=== PATIENT | male | born 1970 | race Caucasian/White ===

== ENCOUNTER 2018-08-05 20:58 | Emergency (ER) | payer SELFPAY ==
[2018-08-05 22:23] LABS: BASOPHILS % (AUTO) 0.6 % (0.0-5.0); EOSINOPHILS % (AUTO) 2.3 % (0.0-8.0); HEMATOCRIT 44.6 % (42-54); LYMPHOCYTES % (AUTO) 33.1 % (21.0-51.0); MEAN CORPUSCULAR HEMOGLOBIN 32.2 pg (27.0-33.0); MEAN CORPUSCULAR VOLUME 92.1 fL (79-99); NUCLEATED RED BLOOD CELLS 0.1 % (0.0-0.19); PLATELET COUNT (AUTO) 253 K/uL (130-400); RED BLOOD CELL COUNT(AUTO) 4.84 MIL/uL (4.50-6.20); RED CELL DISTRIBUTION WIDTH 12.7 % (11.0-15.5); WHITE BLOOD COUNT (AUTO) 7.5 K/uL (4.8-10.8)
[2018-08-05 22:27] LABS: CREATININE 1.2 mg/dL (0.5-1.5); POTASSIUM 3.6 mmol/L (3.5-5.1)
[2018-08-05 22:30] LABS: INR 0.99 (0.85-1.15); PARTIAL THROMBOPLASTIN TIME 28.5 SEC (26.3-35.5); PROTHROMBIN TIME 10.4 SEC (9.6-11.6)
[2018-08-05 22:38] LABS: ALBUMIN 3.7 g/dL (3.5-5.0); BILIRUBIN,TOTAL 0.5 mg/dL (0.2-1.0); TOTAL PROTEIN, SERUM 7.5 g/dL (6.0-8.3)
== END 2018-08-06 02:45 | disposition home or self-care (01) ==
LOC: EDH 20:58 → EEVIPCON 20:58 → EDH 08-06 02:45
DX: R07.89 Other chest pain (principal); I10 Essential (primary) hypertension
CPT/HCPCS: 36415; 71045; 80053; 82550; 83874; 84484; 85025; 85610; 85730; 93005

== ENCOUNTER 2023-04-07 17:56 | Emergency (ER) | payer OTHER ==
[~2023-04-07] VITALS: Ht 182.9 cm; Wt 122.5 kg
[2023-04-07 18:37] LABS: RAPID GROUP A STREP negative (NEGATIVE)
[2023-04-07 18:40] LABS: SARS-CoV-2, RNA, NAAT NEGATIVE SARS CoV-2 (NEGATIVE)
[2023-04-07 18:45] LABS: INFLUENZA TYPE A Negative For Type A (NEGATIVE); INFLUENZA TYPE B Negative For Type B (NEGATIVE)
[2023-04-07] MEDS ORDERED: KETOROLAC 30MG VIAL (30MG/ML) IVP ONE (20:30)
[2023-04-07] MEDS ORDERED: FAMOTIDINE 20MG VIAL IV ONE (20:30)
[2023-04-07] MEDS ORDERED: ALBUTEROL 0.083% 2.5 MG/3 ML INH IH ONE (20:30)
[2023-04-07] MEDS ORDERED: METOCLOPRAMIDE 10 MG/2 ML VIAL IVP ONE (20:30)
[2023-04-07] MEDS ORDERED: LACTATED RINGERS 1000ML 1,000 ML IV ONE (20:30)
[2023-04-07] MEDS ORDERED: GUAIFENESIN 600 MG TABLET.ER PO ONE (20:30)
[2023-04-07 20:38] VITALS: PULSE 92; RESP 18
[2023-04-07 21:03] LABS: BASOPHILS # (AUTO) 0.04 K/uL (0.00-0.20); BASOPHILS % (AUTO) 0.7 % (0.0-5.0); EOSINOPHILS # (AUTO) 0.27 K/uL (0.00-0.70); EOSINOPHILS % (AUTO) 4.8 % (0.0-8.0); HEMATOCRIT 38.7 % (42-54); IMMATURE GRANULOCYTE ABSOLUTE 0.02 K/uL (0-1); LYMPHOCYTES # (AUTO) 2.1 K/uL (1.0-4.8); LYMPHOCYTES % (AUTO) 37.9 % (21.0-51.0); MEAN CORPUSCULAR HEMOGLOBIN 31.1 pg (27.0-33.0); MEAN CORPUSCULAR HGB CONC 33.9 g/dL (32.0-36.0); MEAN CORPUSCULAR VOLUME 91.9 fL (79-99); MONOCYTES # (AUTO) 0.6 K/uL (0.1-1.0); MONOCYTES % (AUTO) 11.2 % (3.0-13.0); NEUTROPHILS # (AUTO) 2.6 K/uL (1.8-7.7); PLATELET COUNT (AUTO) 202 K/uL (130-400); RED BLOOD CELL COUNT(AUTO) 4.21 MIL/uL (4.50-6.20); RED CELL DISTRIBUTION WIDTH 12.7 % (11.0-15.5); WHITE BLOOD COUNT (AUTO) 5.7 K/uL (4.8-10.8)
[2023-04-07 21:09] LABS: POTASSIUM 4.4 mmol/L (3.5-5.1)
[2023-04-07 21:15] LABS: ALBUMIN 2.8 g/dL (3.5-5.0); BILIRUBIN,TOTAL 0.2 mg/dL (0.2-1.0); TOTAL PROTEIN, SERUM 6.2 g/dL (6.0-8.3)
[2023-04-07] MEDS ORDERED: AUD IH (22:18)
[2023-04-07] MEDS ORDERED: GUAI600T50 PO (22:18)
[2023-04-07] MEDS ORDERED: ALBUHFA IH (22:18)
[2023-04-07 23:14] VITALS: BP 118/90; PULSE 78; RESP 16; O2SAT 98
== END 2023-04-07 23:19 | disposition home or self-care (01) ==
LOC: EDH 17:56
DX: J20.9 Acute bronchitis, unspecified (principal); Z20.822 Contact with and (suspected) exposure to COVID-19; Z98.890 Other specified postprocedural states
CPT/HCPCS: 99285; 96374; 96361; 76705; 71045; 87635; 96375 ×2; 84484; 80053; 83690; 85025; 87880; 87804 ×2; 83605; 36415; 93005; 94640; C9803; J7120; J3490; J1885; J2765

== ENCOUNTER 2023-04-09 00:11 | Emergency (ER) | payer OTHER ==
[~2023-04-09] VITALS: Ht 182.9 cm; Wt 122.5 kg
[~2023-04-09 00:11] MED LIST: ALBUHFA IH; AUD IH; GUAI600T50 PO
[2023-04-09] MEDS ORDERED: CYCLOBENZAPRINE HCL 10 MG TABLET PO ONE (00:30)
[2023-04-09] MEDS ORDERED: IBUPROFEN 800 MG TAB PO ONE (00:30)
[2023-04-09 02:07] VITALS: BP 145/62; PULSE 78; RESP 14; O2SAT 97
[2023-04-09] MEDS ORDERED: CYCL-309 PO (02:11)
[2023-04-09] MEDS ORDERED: IBUP-1493 PO (02:11)
== END 2023-04-09 02:21 | disposition home or self-care (01) ==
LOC: EDH 00:11
DX: S30.1XXA Contusion of abdominal wall, initial encounter (principal); M79.10 Myalgia, unspecified site; Z79.899 Other long term (current) drug therapy; Z98.890 Other specified postprocedural states; X58.XXXA Exposure to other specified factors, initial encounter; Y93.89 Activity, other specified; Y92.89 Other specified places as the place of occurrence of the external cause; Y99.8 Other external cause status

== ENCOUNTER 2024-03-13 11:38 | Emergency (ER) | payer SELFPAY ==
[~2024-03-13] VITALS: Ht 182.9 cm; Wt 127.0 kg
[~2024-03-13 11:38] MED LIST changes: +CYCL-309 PO; +IBUP-1493 PO
[2024-03-13] MEDS ORDERED: NAPR-1023 PO (13:47)
--- NOTE | 2024-03-13 13:48 | ERN ---
General Chief Complaint: Knee Injury/Swelling Stated Complaint: RIGHT KNEE PAIN Time Seen by MD: 11:49 Source: patient History of Present Illness Initial Comments PATIENT IS A 53-YEAR-OLD MALE COMING IN TO BE EVALUATED FOR RIGHT KNEE PAIN. PATIENT STATES THAT HE WAS WALKING AND TWISTED HIS RIGHT KNEE. HE COMPLAINS OF TENDERNESS IN THE MEDIAL ASPECT OF THE KNEE. Allergies: Coded Allergies: No Known Allergies (Unverified Allergy, Unknown, 04/07/23) Home Meds Active Scripts Ibuprofen (Motrin/Advil) 800 Mg Tab, 800 MG PO TID, #30 TAB Prov:MUNDO JENNINGS MD 04/09/23 Cyclobenzaprine HCl (Cyclobenzaprine HCl) 10 Mg Tablet, 10 MG PO TIDP PRN for PAIN, #30 TAB Prov:MUNDO JENNINGS MD 04/09/23 Albuterol Sulfate (Ventolin Hfa/Proventil Hfa/Proair Hfa) 90 Mcg Puff, 2 PUFF IH Q4H for WHEEZING, #1 INHALER 2 Refills Prov:JESSICA PATRICIO Sr., MD 04/07/23 Albuterol Sulfate (Albuterol Sulfate) 2.5 Mg/0.5 Ml Vial.neb, 2.5 MG IH Q6H for wheezing/sob, #20 INH 2 Refills Prov:JESSICA PATRICIO Sr., MD 04/07/23 Guaifenesin (Mucinex) 600 Mg Tablet.er, 600 MG PO QIDP PRN for COUGH/COLD SYMPTOMS, #40 TAB 2 Refills Prov:JESSICA PATRICIO Sr., MD 04/07/23 Past Medical History Past Medical History: No Pertinent History Past Surgical History: Other Surgical History Other: ABSCESS TO RT JAW Family History Family History: Negative Social History Social History: Lives with family ROS Dictation CONSTITUTIONAL: NO CHILLS, NO FEVER, NO WEAKNESS, NO DIAPHORESIS, NO MALAISE. HEAD/FACE: NO SIGNS OF TRAUMA. EENT: NO EYE PAIN, NO BLURRED VISION, NO TEARING, NO DOUBLE VISION, NO EAR PAIN, NO EAR DISCHARGE, NO NOSE PAIN, NO NASAL CONGESTION, NO THROAT PAIN, NO THROAT SWELLING, NO MOUTH PAIN. RESPIRATORY: NO COUGH, NO ORTHOPNEA, NO SOB, NO STRIDOR, NO WHEEZING. CARDIOVASCULAR: NO CHEST PAIN, NO EDEMA, NO PALPITATIONS, NO SYNCOPE. GASTROINTESTINAL/ABDOMINAL: NO ABDOMINAL PAIN, NO CONSTIPATION, NO DIARRHEA, NO NAUSEA, NO VOMITING. GENITOURINARY: NO ABNORMAL DISCHARGE, NO DYSURIA, NO FREQUENT URINATION, NO HEMATURIA. NO COMPLAINTS OF PAIN IN THE GENITALS. MUSCULOSKELETAL: NO BACK PAIN, NO GOUT, NO JOINT PAIN, JOINT SWELLING, MUSCLE PAIN, MUSCLE STIFFNESS, NO NECK PAIN. INTEGUMENTARY: NO CHANGE IN COLOR, NO CHANGE IN HAIR/NAILS, NO DRYNESS, NO LESION, NO LUMPS, NO RASH. NEUROLOGICAL/PSYCH: NO ANXIETY, NOT DEPRESSED, NO EMOTIONAL PROBLEM, NO HEADACHE, NO NUMBNESS, NO PRE-EXISTING DEFICIT, NO HISTORY OF SEIZURES, NO TREMORS, NO WEAKNESS. HEMATOLOGIC/LYMPHATIC: NOT ANEMIC, NO HISTORY OF BLOOD CLOTS, NO APPARENT BLEEDING, NO BRUISING, GLANDS NOT SWOLLEN. ALL SYSTEMS NEGATIVE, EXCEPT NOTED. Physical Exam Physical Exam Dictation VITAL SIGNS: REVIEWED. GENERAL APPEARANCE: ALERT, ORIENTED X3, NO ACUTE DISTRESS, OBESE. HEAD AND FACE: NON-TRAUMATIC. EYES: PERRL, PINK CONJUNCTIVAS, EYELID NO TRAUMA, ANTERIOR CHAMBER CLEAR. EARS: PINNAS INTACT AND NO SIGNS OF TRAUMA OR ERYTHEMA. EAR CANALS CLEAR AND NO DISCHARGE. TMS NO ERYTHEMA. NOSE: NO DISCHARGE, NO BLEEDING. OROPHARYNX: MOUTH NORMAL, TEETH NO CARIES, TONGUE PINK. PHARYNX CLEAR, NO ERYTHEMA. TONSILS NO EXUDATES, NO ABSCESSES NOTED. MUCOUS MEMBRANE MOIST. NECK: SUPPLE, NON-TENDER, NO THYROMEGALY, NO MASSES, NO JVD, NO BRUITS. BREAST: DEFERRED. CHEST: NO TENDERNESS, NO CREPITUS, NO PARADOXICAL MOVEMENT, NO RETRACTIONS. LUNGS: CLEAR, WELL-VENTILATED, SYMMETRIC, NO RALES, NO WHEEZING, NO RHONCHI, NO STRIDOR, GOOD BREATH SOUNDS BILATERALLY. HEART: REGULAR RATE, REGULAR RHYTHM, NO MURMUR, NO GALLOPS. VASCULAR: NO PERIPHERAL EDEMA. ABDOMEN: SOFT, POSITIVE BOWEL SOUNDS, NONDISTENDED, NO GUARDING, NONTENDER, NO REBOUND, NO MASSES NO HEPATOMEGALY, NO SPLENOMEGALY, NO BRAUN'S SIGN, NO HERNIAS. RECTAL: DEFERRED. GENITAL: DEFERRED. NEUROLOGICAL: NORMAL SPEECH, GROSS MOTOR FUNCTION INTACT, GROSS SENSORY FUNCTION INTACT. MUSCULOSKELETAL: NECK NONTENDER, FULL RANGE OF MOTION, BACK NONTENDER, FULL RANGE OF MOTION. EXTREMITIES: NONTENDER, FULL RANGE OF MOTION. RIGHT DISCOMFORT ON PALPATION, NO DEFORMITY NOTED SKIN: COLOR PINK, DRY, NO TURGOR, NO RASH, NO LACERATIONS, NO ABRASIONS, NO CONTUSIONS. LYMPHATICS: DEFERRED. Results Laboratory and Microbiology Labs Reviewed?: Yes EKG/XRAY/US/CT/MRI X-RAY Comment X-RAY RIGHT KNEE-NAD MDM MDM: DIFFERENTIAL DIAGNOSIS: RIGHT KNEE STRAIN, RIGHT KNEE FRACTURE, PATELLAR FRACTURE PATIENT IS A 53-YEAR-OLD MALE COMING IN TO BE EVALUATED FOR RIGHT KNEE PAIN. PATIENT STATES THAT EARLIER HE WAS WALKING IN TWISTED HIS RIGHT KNEE IN HIS COMPLAINING OF MEDIAL TENDERNESS. ON X-RAY NO ACUTE FINDINGS. KNEE IMMOBILIZER WILL BE PLACED I ADVISED HER APPROPRIATE FOLLOW UP WITH PCP IN 1-2 DAYS FOR ED Course Orders Procedure Category Date Status Time Knee 3vws Rt RAD 03/13/24 Taken 12:05 Knee Immobilizer YUSEF 03/13/24 In Process 13:25 Ketorolac PHA 03/13/24 Complete Tromethamine 30mg/Ml 13:30 Current Medications Medications (Trade) Dose Ordered Sig/Tanja Route PRN Reason Start Time Stop Time Status Last Admin Dose Admin Ketorolac Tromethamine (toRADol) 30 mg ONCE ONCE IM 03/13/24 13:30 03/13/24 13:31 DC Vital Signs Date Time Temp Pulse Resp B/P (MAP) Pulse Ox O2 Delivery O2 Flow Rate FiO2 03/13/24 11:46 97.9 99 16 162/115 97 Room Air 0 DX & DISP Disposition: Discharge Departure Impression: Primary Impression: Knee strain Condition: Stable Scripts Naproxen (Naproxen) 500 Mg Tablet 1 TAB PO BID for pain for 7 Days, #14 TAB 0 Refills Prov: LISA MAIER MD 03/13/24 Additional Instructions: FOLLOW-UP WITH PRIMARY CARE PROVIDER IN 1 TO 2 DAYS. TAKE MEDICATIONS DIRECTED HERE IN THE EMERGENCY ROOM. OKAY TO CONTINUE HOME MEDICATIONS UNLESS OTHERWISE DISCUSSED DURING YOUR VISIT IN THE EMERGENCY ROOM TODAY. RETURN TO YOUR NEAREST EMERGENCY ROOM IF SYMPTOMS WORSEN OR IF THERE IS NO IMPROVEMENT. CALL 911 IF YOU NEED IMMEDIATE ASSISTANCE. TAKE TYLENOL [id number] N EEDED AND IF NO CONTRAINDICATIONS ARE PRESENT. INCREASE ORAL HYDRATION. A WOUND CULTURE OR URINE CULTURE WAS ORDERED HERE IN THE EMERGENCY ROOM DEPARTMENT PLEASE FOLLOW-UP WITH PRIMARY CARE PROVIDER AND ADVISE THEM TO GET REPEAT PORTS FROM OUR FACILITY. IF YOU HAD ANY ABIGAIL WRAP/SPLINTS THAT WERE APPLIED HERE, PLEASE DO NOT REMOVE THEM UNTIL YOU SEE YOUR PRIMARY CARE OR SPECIALTY. REFERRALS: Referrals: SELF,REFERRAL (PCP) MILVIA FONG MD, LUIS A MD Time of Disposition: 13:46 LISA MAIER MD Mar 13, 2024 13:48
--- NOTE | 2024-03-13 13:51 | HMCIMG ---
KNEE 3VWS RT HISTORY: Pain COMPARISON: None TECHNIQUE: 3 images of right knee were obtained. FINDINGS: There is no acute displaced fracture or dislocation. There is soft tissue swelling. Degenerative changes are seen. IMPRESSION: 1. Findings as described above.
[2024-03-13 14:04] VITALS: BP 160/95; PULSE 90; RESP 16; TEMP 97.7; O2SAT 100
[2024-03-13] MEDS: ketOROlac 30MG VIAL (30MG/ML) IM ONE (14:14)
== END 2024-03-13 14:28 | disposition home or self-care (01) ==
LOC: EDH 11:38
DX: S86.911A Strain of unspecified muscle(s) and tendon(s) at lower leg level, right leg, initial encounter (principal); Z79.1 Long term (current) use of non-steroidal anti-inflammatories (NSAID); X50.1XXA Overexertion from prolonged static or awkward postures, initial encounter; Y93.01 Activity, walking, marching and hiking; Y92.89 Other specified places as the place of occurrence of the external cause; Y99.8 Other external cause status
CPT/HCPCS: 99283; 29505; 73562; 96372; J1885

== ENCOUNTER 2024-03-19 09:13 | Emergency (ER) | payer SELFPAY ==
[~2024-03-19] VITALS: Ht 182.9 cm; Wt 136.1 kg
[~2024-03-19 09:13] MED LIST changes: +NAPR-1023 PO
[2024-03-19 09:14] VITALS: BP 162/110; PULSE 105; RESP 16; TEMP 97.8
--- NOTE | 2024-03-19 09:26 | ERN ---
General Chief Complaint: Other Problems Stated Complaint: STATES NEEDS RELEADE TO RETURN TO WORK Time Seen by MD: 09:17 Source: patient History of Present Illness Initial Comments In his is a 53-year-old male coming in to be evaluated for clearance to go back to work. Per patient he was seen here before was given a knee immobilizer as due to knee pain. Patient states he can not go back to work until he is cleared. He has not followed up with the PCP. Allergies: Coded Allergies: No Known Allergies (Unverified Allergy, Unknown, 04/07/23) Home Meds Active Scripts Naproxen (Naproxen) 500 Mg Tablet, 1 TAB PO BID for pain for 7 Days, #14 TAB 0 Refills Prov:LISA MAIER MD 03/13/24 Ibuprofen (Motrin/Advil) 800 Mg Tab, 800 MG PO TID, #30 TAB Prov:MUNDO JENNINGS MD 04/09/23 Cyclobenzaprine HCl (Cyclobenzaprine HCl) 10 Mg Tablet, 10 MG PO TIDP PRN for PAIN, #30 TAB Prov:MUNDO JENNINGS MD 04/09/23 Albuterol Sulfate (Ventolin Hfa/Proventil Hfa/Proair Hfa) 90 Mcg Puff, 2 PUFF IH Q4H for WHEEZING, #1 INHALER 2 Refills Prov:JESSICA PATRICIO Sr., MD 04/07/23 Albuterol Sulfate (Albuterol Sulfate) 2.5 Mg/0.5 Ml Vial.neb, 2.5 MG IH Q6H for wheezing/sob, #20 INH 2 Refills Prov:JESSICA PATRICIO Sr., MD 04/07/23 Guaifenesin (Mucinex) 600 Mg Tablet.er, 600 MG PO QIDP PRN for COUGH/COLD SYMPTOMS, #40 TAB 2 Refills Prov:JESSICA PATRICIO Sr., MD 04/07/23 Past Medical History Past Medical History: No Pertinent History Past Surgical History: Other Surgical History Other: ABSCESS TO RT JAW Family History Family History: Negative Social History Social History: Lives with family ROS Dictation CONSTITUTIONAL: No chills, no fever, no weakness, no diaphoresis, no malaise. HEAD/FACE: No signs of trauma. EENT: No eye pain, no blurred vision, no tearing, no double vision, no ear pain, no ear discharge, no nose pain, no nasal congestion, no throat pain, no throat swelling, no mouth pain. RESPIRATORY: No cough, no orthopnea, no SOB, no stridor, no wheezing. CARDIOVASCULAR: No chest pain, no edema, no palpitations, no syncope. GASTROINTESTINAL/ABDOMINAL: No abdominal pain, no constipation, no diarrhea, no nausea, no vomiting. GENITOURINARY: No abnormal discharge, no dysuria, no frequent urination, no hematuria. No complaints of pain in the genitals. MUSCULOSKELETAL: No back pain, no gout, no joint pain, no joint swelling, no muscle pain, no muscle stiffness, no neck pain. INTEGUMENTARY: No change in color, no change in hair/nails, no dryness, no lesion, no lumps, no rash. NEUROLOGICAL/PSYCH: No anxiety, not depressed, no emotional problem, no headache, no numbness, no pre-existing deficit, no history of seizures, no tremors, no weakness. HEMATOLOGIC/LYMPHATIC: Not anemic, no history of blood clots, no apparent bleeding, no bruising, glands not swollen. All Systems Negative, Except as Noted. Physical Exam Physical Exam Dictation VITAL SIGNS: Reviewed. GENERAL APPEARANCE: Alert, oriented x3, no acute distress, obese. HEAD AND FACE: Non-traumatic. EYES: PERRL, pink conjunctivas, eyelid no trauma, anterior chamber clear. EARS: Pinnas intact and no signs of trauma or erythema. Ear canals clear and no discharge. TMs no erythema. NOSE: No discharge, no bleeding. OROPHARYNX: Mouth normal, teeth no caries, tongue pink. Pharynx clear, no erythema. Tonsils no exudates, no abscesses noted. Mucous membrane moist. NECK: Supple, non-tender, no thyromegaly, no masses, no JVD, no bruits. BREAST: Deferred. CHEST: No tenderness, no crepitus, no paradoxical movement, no retractions. LUNGS: Clear, well-ventilated, symmetric, no rales, no wheezing, no rhonchi, no stridor, good breath sounds bilaterally. HEART: Regular rate, regular rhythm, no murmur, no gallops. VASCULAR: No peripheral edema. ABDOMEN: Soft, positive bowel sounds, nondistended, no guarding, nontender, no rebound, no masses no hepatomegaly, no splenomegaly, no Tracey's sign, no hernias. RECTAL: Deferred. GENITAL: Deferred. NEUROLOGICAL: Normal speech, gross motor function intact, gross sensory function intact. MUSCULOSKELETAL: Neck nontender, full range of motion, back nontender, full range of motion. EXTREMITIES: Nontender, full range of motion. SKIN: Color pink, dry, no turgor, no rash, no lacerations, no abrasions, no contusions. LYMPHATICS: Deferred. Results Laboratory and Microbiology Labs Reviewed?: Yes MDM MDM: Differential diagnosis: Wellness exam Patient is a 53-year-old male coming in to be medical clear to go back to work. I advised him appropriate follow up with PCP in 1-2 days to continue monitoring and will be released back to work. ED Course Vital Signs Date Time Temp Pulse Resp B/P (MAP) Pulse Ox O2 Delivery O2 Flow Rate FiO2 03/19/24 09:14 97.9 105 16 162/110 96 Room Air 0 DX & DISP Disposition: Discharge Departure Impression: Primary Impression: Wellness examination Condition: Stable Referrals: SELF,REFERRAL (PCP) GUERLINE DORMAN MD FOLLOW-UP WITH PRIMARY CARE PROVIDER IN 1 TO 2 DAYS. TAKE MEDICATIONS DIRECTED HERE IN THE EMERGENCY ROOM. OKAY TO CONTINUE HOME MEDICATIONS UNLESS OTHERWISE DISCUSSED DURING YOUR VISIT IN THE EMERGENCY ROOM TODAY. RETURN TO YOUR NEAREST EMERGENCY ROOM IF SYMPTOMS WORSEN OR IF THERE IS NO IMPROVEMENT. CALL 911 IF YOU NEED IMMEDIATE ASSISTANCE. TAKE TYLENOL [id number] NEEDED AND IF NO CONTRAINDICATIONS ARE PRESENT. INCREASE ORAL HYDRATION. A WOUND CULTURE OR URINE CULTURE WAS ORDERED HERE IN THE EMERGENCY ROOM DEPARTMENT PLEASE FOLLOW-UP WITH PRIMARY CARE PROVIDER AND ADVISE THEM TO GET REPEAT PORTS FROM OUR FACILITY. IF YOU HAD ANY ABIGAIL WRAP/SPLINTS THAT WERE APPLIED HERE, PLEASE DO NOT REMOVE THEM UNTIL YOU SEE YOUR PRIMARY CARE OR SPECIALTY. Referrals: LISA MAIER MD Mar 19, 2024 09:26
--- NOTE | 2024-03-19 09:59 | NUR ---
PT REQUESTING RELEASE TO GO BACK TO WORK. DR MAIER REFERRED HIM TO PCP DR DORMAN FOR CLEARANCE.
== END 2024-03-19 10:00 | disposition home or self-care (01) ==
LOC: EDH 09:13
DX: Z00.00 Encounter for general adult medical examination without abnormal findings (principal); Z79.1 Long term (current) use of non-steroidal anti-inflammatories (NSAID)
CPT/HCPCS: 99282